=== PATIENT | male | born 1985 | race Caucasian/White ===

== ENCOUNTER 2019-01-02 08:26 | Day surgery (SDC) | payer OTHER ==
[2018-12-25 16:14] LABS: BASOPHILS # (AUTO) 0.1 X10'3 (0-0.2); BASOPHILS % (AUTO) 0.8 % (0-1); EOSINOPHILS # (AUTO) 0.3 X10'3 (0-0.9); EOSINOPHILS % (AUTO) 3.3 % (0-6); LYMPHOCYTES # (AUTO) 2.5 X10'3 (1.1-4.8); LYMPHOCYTES % (AUTO) 30.7 % (21-51); MEAN CORPUSCULAR HEMOGLOBIN 30.1 PG (27.0-31.0); MEAN CORPUSCULAR HGB CONC 33.5 g/dL (33.0-36.5); MEAN CORPUSCULAR VOLUME 89.9 FL (78-98); MEAN PLATELET VOLUME 9.8 FL (7.4-10.4); MONOCYTES # (AUTO) 0.7 X10'3 (0-0.9); MONOCYTES % (AUTO) 9.1 % (2-12); NEUTROPHILS # (AUTO) 4.5 X10'3 (1.8-7.7); NEUTROPHILS % (AUTO) 56.1 % (42-75); PRE OP HEMATOCRIT 45.7 % (42.0-52.0); PRE OP HEMOGLOBIN 15.3 g/dL (14.0-17.9); PRE OP PLATELET COUNT 196 X10'3 (140-440); RED BLOOD COUNT 5.08 X10'6 (4.70-6.10); RED CELL DISTRIBUTION WIDTH 13.1 % (11.5-14.5)
[2018-12-25 16:20] LABS: ALBUMIN 3.9 G/DL (3.4-5.0); ALBUMIN/GLOBULIN RATIO 1.2 (1.1-1.5); ALKALINE PHOSPHATASE 53 IU/L (46-116); BLOOD UREA NITROGEN 15 MG/DL (7-18); BUN/CREATININE RATIO 16.7 (5.4-32.0); CALCIUM 9.1 MG/DL (8.5-10.1); CHLORIDE 105 MMOL/L (99-107); PRE OP ALT 25 U/L (30-65); PRE OP ANION GAP 3 (8-16); PRE OP AST 17 U/L (10-37); PRE OP BILIRUB, TOTAL 0.3 MG/DL (0.0-1.0); PRE OP GLUCOSE 83 MG/DL (70-104); PRE OP SODIUM 139 MMOL/L (135-145); TOTAL CARBON DIOXIDE 30.6 MMOL/L (24-32); TOTAL PROTEIN 7.1 G/DL (6.4-8.2); eGFR > 90 ML/MIN
[2019-01-02] VITALS (11 sets, daily range): BP systolic 110–127; BP diastolic 58–88
[~2019-01-02] VITALS: Ht 177.8 cm; Wt 99.0 kg
[~2019-01-02 08:26] MED LIST: NO HOME MEDS; ROPIVAcaine 0.5% (5mg/ml) 30ml vial ONE; Thrombin (Bovine) 5,000 unit vial TP ONE; acetaminophen 325mg tablet PO ONE; ceFAZolin 1000mg inj ONE; cefazolin/dext.iso 2gm/100 ML IV ONE; epiNEPHrine 1 mg/ml inj ONE; famotidine 20mg tablet PO ONE; gelatin sponge, absorbable (Gelfoam 100) sponge TP ONE; oxyCODONE SR 10mg (sust. release) tab -2 tabs (20mg) PO ONE; ringers solution, lacted 1,000 ML IV SCH
[2019-01-02] MEDS ORDERED: sevoflurane 250ml liquid IH ONE (10:50)
[2019-01-02] MEDS ORDERED: LIDOcaine 1%/PF 5ML 10 MG/ML VIAL ONE (10:50)
[2019-01-02] MEDS ORDERED: dexamethasone sod phosphate 10mg/ml inj ONE (10:50)
[2019-01-02] MEDS ORDERED: fentaNYL/PF 50MCG/1 ML 2ML syringe ONE ×2 (10:55→11:18)
[2019-01-02] MEDS ORDERED: MIDAZolam 5mg/5ml vial ONE (10:56)
[2019-01-02] MEDS ORDERED: propofol inj 20 ML IV ONE (11:08)
[2019-01-02] MEDS ORDERED: dexamethasone sod phosphate 4mg/ml inj. ONE (11:08)
[2019-01-02] MEDS ORDERED: ringers solution, lacted 1,000 ML IV SCH (12:02)
[2019-01-02] MEDS ORDERED: proCHLORperazine 10 MG/2 ml inj IV PRN (12:05)
[2019-01-02] MEDS ORDERED: morphine 4 MG/ML inj SYRINge IV PRN ×2 (12:05)
[2019-01-02] MEDS ORDERED: ondansetron/PF 4mg/2ml inj IV PRN (12:05)
[2019-01-02] MEDS ORDERED: meperidine/PF 25mg/ml syringe IV PRN ×3 (12:05)
[2019-01-02] MEDS ORDERED: ondansetron/PF 4mg/2ml inj ONE (13:09)
[2019-01-02] MEDS ORDERED: ROPIVAcaine 0.5% (5mg/ml) 30ml vial ONE (13:09)
[2019-01-02] MEDS ORDERED: meperidine/PF 50mg/ml syringe ONE (13:10)
--- NOTE | 2019-01-02 13:22 | NUR ---
Received from OR via [facility], accompanied by Anesthesiologist TAYLER and report given by Anesthesiolgist. RUI TO RIGHT KNEE. DRESSING IS CDI CURRENTLY. + DORSALIS PEDIS. LMA IN PLACE, WILL REMOVE ONCE AROUSABLE. PATIENT VSS AT THIS TIME. Addendum: 01/02/19 at 1333 by Thien Valverde RN, RN Amended: Links added.
--- NOTE | 2019-01-02 14:42 | NUR ---
ALL DC CRITERIA HAS BEEN MET. IV TAKEN OUT WITHOUT COMPLICATIONS. ALL INSTRUCTIONS COVERED AND ALL QUESTIONS ANSWERED. DRESSINGS CDI. OUT VIA WHEELCHAIR TO PERSONAL VEHICLE WHERE PATIENT WAS SECURED IN AND DRIVEN HOME BY FAMILY. ALL DC INSTRUCTIONS COVERED WITH AT BEDSIDE. PATIENT PAIN WELL CONTROLLED. HAS SCRIPT FOR PAIN MEDS ALREADY. Addendum: 01/02/19 at 1457 by Thien Valverde RN, RN Amended: Links added.
== END 2019-01-02 14:42 | disposition home or self-care (01) ==
LOC: PAS 08:26
PROVIDERS: ATTEND Orthopaedic Surgery
DX: S83.511A Sprain of anterior cruciate ligament of right knee, initial encounter (principal); X58.XXXA Exposure to other specified factors, initial encounter; Y93.89 Activity, other specified; Y92.89 Other specified places as the place of occurrence of the external cause; Y99.9 Unspecified external cause status
CPT/HCPCS: 29888; 36415; 80053; 82948; 85025; A6449; C1713; J0171; J0690; J1100; J2001; J2175; J2250; J2405; J2704; J3010; J7120; L1832; A7000; J2795; J7030